=== PATIENT | female | born 1935 | race Caucasian/White ===

== ENCOUNTER → 2019-03-26 10:27 | Outpatient (CLI) | payer OTHER, SELFPAY ==
--- NOTE | ~2019-03-26 | XR_ITS ---
XR lumbar spine 2-3V DATE: 03/26/2019 10:44 INDICATION: Back pain TECHNIQUE: AP, lateral, coned lateral lumbosacral views COMPARISON: 10/26/2004 lumbar spine 11/05/2004 MRI lumbar spine FINDINGS: There is rotatory levoscoliosis of the lumbar spine with bridging osteophytes throughout th e spine. Diffuse idiopathic skeletal hyperostosis of the lower thoracic spine. There is approximately 8 mm left lateral translation of L4 with respect to L5. There is severe degene rative disc disease throughout the lumbar spine. There is diffuse osteopenia. The sacroiliac joints appear normal. Surgical clips overlie the right upper quadrant, likely due to cholecystectomy. There is a prominent amount of fecal material in the rectum and colon. IMPRESSION: Rotatory levoscoliosis and degenerative disc disease and bridging osteophytes throughout the lumbar spine Diffuse idiopathic skeletal hyperostosis of the lower thoracic spine Diffuse osteopenia Reviewed, dictated and finalized at location B. CIATE PROFESSOR OF BIOLOGY IMPRESSION: Rotatory levoscoliosis and degenerative disc disease and bridging o steophytes throughout the lumbar spine Diffuse idiopathic skeletal hyperostosis of the lower thoracic spine Diffuse osteopenia
== END ==
PROVIDERS: PCP Emergency Medicine; Visit Provider Emergency Medicine
DX: M85.88 Other specified disorders of bone density and structure, other site (principal); M51.36 Other intervertebral disc degeneration, lumbar region
CPT/HCPCS: 72100

== ENCOUNTER 2020-04-13 13:28 | Outpatient (CLI) | payer OTHER, MEDICARE, SELFPAY | END 2020-04-13 13:29 | disposition home or self-care (01) | LOC: ANHCOVIDVC 13:28 | PROVIDERS: PCP Emergency Medicine | DX: Z23 Encounter for immunization (principal) | CPT/HCPCS: 0001A; 91300 ==

== ENCOUNTER 2020-05-04 13:24 | Outpatient (CLI) | payer OTHER, MEDICARE, SELFPAY | END 2020-05-04 13:25 | disposition home or self-care (01) | LOC: ANHCOVIDVC 13:24 | PROVIDERS: PCP Emergency Medicine | DX: Z23 Encounter for immunization (principal) | CPT/HCPCS: 0002A; 91300 ==

== ENCOUNTER → 2021-03-15 10:44 | Outpatient (CLI) | payer OTHER, SELFPAY ==
--- NOTE | ~2021-03-15 | DEXA_ITS ---
Bone Density Report Name: EDI JOHN Age: 85 Sex: Female Ethnicity: White Date of : 1935 Indication: osteopenia; height loss; hysterectomy; Referring Provider: FLORIDALMA SHER Study: Bone densitometry was performed. Exam Date: March 15, 2021 Accession number: [id number] Bone Density: Region BMD T-score Z-score Classification AP Spine (L1-L4) 1.161 1.0 3.9 Normal Femoral Neck (Left) 0.672 -1.6 0.9 Osteopenia Total Hip (Left) 0.822 -1.0 1.4 Normal Femoral Neck (Right) 0.709 -1.3 1.3 Osteopenia Total Hip (Right) 0.824 -1.0 1.4 Normal Total Hip Mean 0.823 -1.0 1.4 Normal World Health Organization criteria for BMD impression classify patients as: Normal (T-score at or above -1.0), Osteopenia (T-score between -1.0 and -2.5), or Osteoporosis (T-score at or below -2.5). 10-year Fracture Risk(1): Major Osteoporotic Fracture 12% Hip Fracture 3.4% Reported Risk Factors: [place] (), Neck BMD=0.672, BMI=29.5 (1) FRAX(R) Version 3.08. Fracture probability calculated for an untreated patient. Fracture probability may be lower if the patient has received treatment. Previous Exams: Region Exam Age BMD T-score BMD Change BMD Change Date g/cm2 vs Baseline vs Previous AP Spine(L1-L4) 03/15/2021 85 1.161 1.0 0.099 -0.040 11/01/2016 81 1.201 1.4 0.139 0.013 07/27/2009 74 1.188 1.3 0.126 0.104 12/02/2005 70 1.084 0.3 0.021 0.021 08/18/2003 68 1.062 0.1 Total Hip(Left) 03/15/2021 85 0.822 -1.0 -0.039 0.010 11/01/2016 81 0.812 -1.1 -0.049 -0.020 07/27/2009 74 0.832 -0.9 -0.029 -0.075 12/02/2005 70 0.907 -0.3 0.046 0.046 08/18/2003 68 0.861 -0.7 Total Hip(Right) 03/15/2021 85 0.824 -1.0 0.014 0.028 11/01/2016 81 0.796 -1.2 -0.015 -0.011 07/27/2009 74 0.806 -1.1 -0.004 -0.050 12/02/2005 70 0.856 -0.7 0.046 0.046 08/18/2003 68 0.810 -1.1 *Denotes significance at 95% confidence level, LSC for AP Spine = 0.022 g/cm2, LSC for Total Hip = 0.027 g/cm2 Clinical Information Provided by Patient: Has used the following medications: Vitamin D, Calcium, MTV Has the following medical conditions: Hysterectomy Patient maximum height was 64.5 Menopause Age: 49 Onset of menses at age 12 Number of c
--- NOTE | ~2021-03-15 | MM_ITS ---
EXAMINATION: MM screening [facility] BI w mike HISTORY: Screening TECHNIQUE: Craniocaudal and mediolateral oblique 3-D tomosynthesis images were obtained and synthetic 2-D images were generated. CAD analysis was submitted and interpreted. COMPARISON: 06/04/2018 BREAST PARENCHYMAL COMPOSITION: Breast composed of scattered areas of fibroglandular density. FINDINGS: The right breast is stable without evidence for malignancy. There is subtle asymmetric arch itectural distortion in the upper outer quadrant of the left breast. There are benign bilateral breas t calcifications. IMPRESSION: 1. Architectural distortion upper outer quadrant of the left breast. 2. Additional mammographic views and possible breast ultrasound are recommended. BI-RADS Category 0: Incomplete: Needs additional imaging evaluation. Reviewed, dictated and finalized at location A. E FITTER IMPRESSION: 1. Architectural distortion upper outer quadrant of the left breast. 2. Additional mammographic views and possible breast ultrasound are recommended . BI-RADS Category 0: Incomplete: Needs additional imaging evaluation.
== END ==
PROVIDERS: PCP Emergency Medicine; Visit Provider Emergency Medicine
DX: Z12.31 Encounter for screening mammogram for malignant neoplasm of breast (principal); Z78.0 Asymptomatic menopausal state; R92.8 Other abnormal and inconclusive findings on diagnostic imaging of breast; M85.852 Other specified disorders of bone density and structure, left thigh; M85.851 Other specified disorders of bone density and structure, right thigh
CPT/HCPCS: 77063; 77067; 77080

== ENCOUNTER → 2021-04-06 08:08 | Outpatient (CLI) | payer OTHER, SELFPAY ==
--- NOTE | ~2021-04-06 | MM_ITS ---
EXAMINATION: MM diagnostic may LT w mike HISTORY: Left breast architectural distortion TECHNIQUE: Additional 3-D tomosynthesis images of the left breast were performed and synthetic 2-D im ages were generated. CAD analysis was submitted and interpreted. COMPARISON: 03/15/2021, 06/04/2018, 07/27/2009 FINDINGS: Architectural distortion is present in the middle third of the outer breast. This correspon ds to an area of prior excisional biopsy. No suspicious calcification or mass are identified. IMPRESSION: 1. No mammographic evidence of malignancy. 2. Recommend annual screening mammography while the patient remains in good health. BI-RADS Category 2: Benign finding(s). Reviewed, dictated and finalized at location A. IN MACHINE OPERATOR IMPRESSION: 1. No mammographic evidence of malignancy. 2. Recommend annual screening mammography while the patient remains in good hea lt. BI-RADS Category 2: Benign finding(s).
== END ==
PROVIDERS: PCP Emergency Medicine; Visit Provider Emergency Medicine
DX: N64.89 Other specified disorders of breast (principal); R92.1 Mammographic calcification found on diagnostic imaging of breast
CPT/HCPCS: 77061; 77065; G0279

== ENCOUNTER → 2021-06-04 10:51 | Outpatient (CLI) | payer OTHER, SELFPAY ==
--- NOTE | ~2021-06-04 | XR_ITS ---
EXAMINATION: XR chest 2V DATE: 06/04/2021 11:26 INDICATION: Cough TECHNIQUE: PA and lateral views of the chest are obtained. COMPARISON: 10/30/2018 FINDINGS: The lungs are free of acute opacities. There is chronic atelectasis of the left lung base. There is no pleural effusion or pneumothorax. The cardiomediastinal silhouette is normal. There is mo derate thoracic spondylosis. IMPRESSION: 1. No acute cardiopulmonary abnormality. Reviewed, dictated and finalized at location B.
== END ==
PROVIDERS: PCP Emergency Medicine; Visit Provider Emergency Medicine
DX: R05.9 Cough, unspecified (principal)
CPT/HCPCS: 71046

== ENCOUNTER 2021-08-08 16:43 | Emergency (ER) | payer OTHER, SELFPAY ==
--- NOTE | ~2021-08-08 | CT_ITS ---
EXAMINATION: CT cervical spine wo con DATE: 08/08/2021 18:00 INDICATION: fall TECHNIQUE: Computed tomography (CT) of the cervical spine was performed without intravenous contrast. Automated exposure control and iterative reconstruction technique were employed. The dose-length pro duct was 219.43 mGy-cm. COMPARISON: 10/30/2018. FINDINGS: Vertebral Body Alignment: Intact. Craniocervical and atlantoaxial alignment: Moderate degenerative change. Alignment intact. Osseous structures/fracture: No evidence of a lytic or blastic process in the visualized spine. No e vidence of acute fracture. Cervical soft tissues: The paraspinal soft tissues planes are maintained. Degenerative changes: Multilevel degenerative disc disease and facet arthropathy. Multilevel severe n eural foraminal narrowing. No severe central canal narrowing. IMPRESSION: No acute fracture or traumatic malalignment in the cervical spine. Reviewed, dictated and finalized at location K.
--- NOTE | ~2021-08-08 | XR_ITS ---
EXAM: XR sacrum coccyx min 2V, XR pelvis 1-2V DATE: 08/08/2021 18:13 HISTORY: fall, pain on tail bone . COMPARISON: None available. FINDINGS: Severely decreased mineralization. Severe degenerative change in the lower lumbar spine, p ubic symphysis, and bilateral hips. Pelvic phleboliths and scattered soft tissue calcifications. Acut e anterior angulation in the lower sacrum. No other acute osseous abnormality detected. IMPRESSION: Acute anterior angulation of the distal sacrum/sacrococcygeal junction. This may represen t a normal finding for this patient, acute fracture, or subacute/chronic injury. Correlate with acute pain or tenderness. Reviewed, dictated and finalized at location K. IMPRESSION: Acute anterior angulation of the distal sacrum/sacrococcygeal junct ion. This may represent a normal finding for this patient, acute fracture, or s ubacute/chronic injury. Correlate with acute pain or tenderness.
--- NOTE | ~2021-08-08 | CT_ITS ---
EXAMINATION: CT brain wo con DATE: 08/08/2021 18:00 INDICATION: head injury . TECHNIQUE: Computed tomography (CT) of the head was performed without intravenous contrast. The mA wa s adjusted according to patient size. Iterative reconstruction technique was employed. The dose-lengt h product was 605.33 mGy-cm. COMPARISON: 10/30/2018. FINDINGS: No acute intracranial hemorrhage or extra-axial fluid collection. No hydrocephalus, mass, or herniation. No acute ischemic infarct. Unremarkable dural venous sinus attenuation. No acute osseous abnormality. Small scalp contusion/laceration at the vertex. The aerated spaces are clear. Moderate chronic white matter change and atrophy. Atherosclerotic intracranial calcifications. Bilate ral lens replacements. IMPRESSION: No acute intracranial process. Reviewed, dictated and finalized at location K.
[2021-08-08 16:42] VITALS: BP 160/65; PULSE 87; RESP 18; TEMP 36.3; O2SAT 96
--- NOTE | 2021-08-08 17:45 | PC.NURSE ---
Pt in CT at this time
--- NOTE | 2021-08-08 18:12 | ED.FALL ---
HPI - Fall General Chief Complaint: Fall Stated Complaint: GLF - LAC TO BACK OF HEAD Time Seen by Provider: 08/08/21 17:22 History of Present Illness HPI Narrative: up on a step grabbing for walker and fell back landed on butt and hit head lac to back of head no loc pain on butt no loc/neuro changes/vision changes no other c/o no cp/sob/abd pain/n/v/d. no neck or back pain needs tdap updated Related Data Home Medications Medication Instructions Recorded Confirmed ascorbic acid (vitamin C) 1,000 mg 1 gm PO DAILY 03/25/19 12/23/20 tablet aspirin 81 mg chewable tablet 81 mg PO DAILY 03/25/19 12/23/20 calcium carbonate 600 mg-vitamin cap PO BID 03/25/19 12/23/20 D3 10 mcg (400 unit) capsule cholecalciferol (vitamin D3) 50 2,000 unit PO DAILY 03/25/19 12/23/20 mcg (2,000 unit) capsule coenzyme Q10 100 mg capsule See Rx Instructions .Route .COMPLEX 03/25/19 12/23/20 (CoQ-10) multivitamin 1 tablet PO .COMPLEX 03/25/19 12/23/20 Allergies Allergy/AdvReac Type Severity Reaction Status Date / Time prazosin Allergy Unknown unknown Verified 08/08/21 18:20 Review of Systems Constitutional: Comments: CONSTITUTIONAL: Denies fever, chills, or sweats. EYES: Denies visual changes, redness, or discharge. ENT: Denies rhinorrhea, congestion, sore throat, or otalgia. CARDIOVASCULAR: Denies chest pain, palpitations, or edema. RESPIRATORY: Denies cough or dyspnea. GASTROINTESTINAL: Denies abdominal pain, nausea, vomiting, or diarrhea. GENITOURINARY: Denies dysuria or hematuria. SKIN: Denies rash or itching. MUSCULOSKELETAL: Denies back pain, joint pain, or myalgia. has head lac and butt pain from the fall NEUROLOGIC: Denies headache, numbness, or weakness. PSYCHIATRIC: Denies anxiety or depression. [facility] Past Medical History Medical History (Updated 08/08/21 @ 18:43 by Esha Peralta MD) Vitamin D deficiency disease Family History Family History Father Acute myocardial infarction, Onset Age: 72 Mother Patient's mother is , Onset Age: 74 Social History Social History Smoking status: Never smoker Alcohol intake: never Exam Const: Other: APPEARANCE: Well appearing, no pain in distress, well-nourished. Head normocephalic 1 inch superficial lac posterior superior scalp lac EYES: PERRLA/EOMI, conjunctivae very clear. NOSE: Normal no drainage EARS:TMS clear Karlos Valiente, with good light reflex. THROAT: Pharynx clear, no exudate. NECK: Supple. No adenopathy, no masses. RESPIRATORY: Airway patent, repsirations nonlabored. Clear to auscultation bilaterally, no rales, rhonchi, wheezing. CARDIOVASCULAR: Regular rate and rhythm without murmurs rubs or gallops. ABDOMINAL: Soft, nontender, nondistended, no hepatosplenomegally MUSCULOSKELETAl: Moves all extremities. Strenght/ROM intact, No edema, No calf tenderness. pain b/l butt cheeks/sacral/coccyx no midline back or neck pain NEURO: Alert. Cranial nerves II through XII intact. Good gait. Good coordination SKIN:: Warm, dry. Normal Color PSYCHIATRIC: Normal affect/mood, normal interaction with parents. Course Course Emergency Course: wound cleaned by nurse and me and let applied at 1810 rechecked sacral area nt where xray finding and discussed with pt ? fx vs normal finding but nt on exam and pt already has donut seat at home good with this for pain and tylenol given likely normal finding givne exam and chronic osteopenia Vital Signs Vital signs: Vital Signs Temperature 36.3 C L 08/08/21 16:42 Pulse Rate 87 08/08/21 16:42 Respiratory Rate 18 08/08/21 16:42 Blood Pressure 160/65 H 08/08/21 16:42 Pulse Oximetry 96 08/08/21 16:42 Oxygen Delivery Room Air 08/08/21 16:42 Temperature 36.3 C L 08/08/21 16:42 Pulse Rate 87 08/08/21 16:42 Respiratory Rate 18 08/08/21 16:42 Blood Pressure 160/65 H
[2021-08-08] MEDS: ACETAMINOPHEN 325 MG TABLET 650 MG PO (18:16)
[2021-08-08] MEDS: TETANUS,DIPHTHERIA,AC PERTUSSIS ADULT (0.5 ML) BOOSTRIX IM (18:16)
[2021-08-08] MEDS: LIDOCAINE, EPINEPHRINE, TETRACAINE VISCOUS SOLN 3 ML TOPICAL (18:16)
[2021-08-08 18:59] VITALS: BP 163/74; PULSE 79; RESP 18; O2SAT 98
== END 2021-08-08 19:00 | disposition home or self-care (01) ==
PROVIDERS: Emergency Provider Emergency Medicine; PCP Emergency Medicine
DX: S01.01XA Laceration without foreign body of scalp, initial encounter (principal); S30.0XXA Contusion of lower back and pelvis, initial encounter; Z23 Encounter for immunization; E55.9 Vitamin D deficiency, unspecified; W18.39XA Other fall on same level, initial encounter
CPT/HCPCS: 12001; 70450; 72125; 72170; 72220; 90471; 90715; 99284; A9270

== ENCOUNTER 2021-08-18 10:35 | Emergency (ER) | payer OTHER, SELFPAY ==
[2021-08-18 10:55] VITALS: BP 177/82; PULSE 75; RESP 18; TEMP 36.7; O2SAT 98
--- NOTE | 2021-08-18 10:58 | ED.SKABFB ---
HPI - Skin/Abscess/Foreign Bdy General Chief complaint: Skin/Abscess/Foreign Body Stated complaint: suture removal Time Seen by Provider: 08/18/21 10:56 Source: patient and RN notes reviewed Mode of arrival: ambulatory Limitations: no limitations History of Present Illness HPI narrative: 86-year-old female presents for suture removal. Reports 10 days ago she had sutures placed on her out when she fell and hit her head. She denies any complications, redness, drainage, pain. She was evaluated for head injury in the emergency room 10 days ago. She denies any subsequent confusion, vomiting, headaches. complaint: other (Suture removal) Related Data Home Medications Medication Instructions Recorded Confirmed ascorbic acid (vitamin C) 1,000 mg 1 gm PO DAILY 03/25/19 08/18/21 tablet aspirin 81 mg chewable tablet 81 mg PO DAILY 03/25/19 08/18/21 calcium carbonate 600 mg-vitamin 1 cap PO BID 03/25/19 08/18/21 D3 10 mcg (400 unit) capsule cholecalciferol (vitamin D3) 50 2,000 unit PO DAILY 03/25/19 08/18/21 mcg (2,000 unit) capsule coenzyme Q10 100 mg capsule See Rx Instructions .Route .COMPLEX 03/25/19 08/18/21 (CoQ-10) multivitamin 1 tablet PO .COMPLEX 03/25/19 08/18/21 Allergies Allergy/AdvReac Type Severity Reaction Status Date / Time prazosin Allergy Unknown unknown Verified 08/18/21 10:41 Review of Systems Review of Systems: CONSTITUTIONAL: Denies malaise, chills, sweats, or fever. SKIN: Reports healing laceration on her scalp with intact sutures MUSCULOSKELETAL: Denies muscle skeletal pain NEUROLOGIC: Denies numbness, weakness All systems reviewed & are unremarkable except as noted in HPI and below PMFSH Past Medical History Medical History (Updated 08/18/21 @ 11:07 by Laya Salazar NP) Vitamin D deficiency disease Family History Family History Father Acute myocardial infarction, Onset Age: 72 Mother Patient's mother is , Onset Age: 74 Social History Social History Smoking status: Never smoker Alcohol intake: never Comments At time of signature, agree with nursing past medical, surgical, social and family history. There is no relevant family history pertinent to the presenting complaint Exam Narrative: GENERAL: Well-appearing, well-nourished, and in no acute distress. HEAD: Normocephalic, atraumatic. EYES: PERRLA, conjunctivae clear ENT: Mucous membranes moist. NECK: Supple. No lymphadenopathy CHEST: Clear to auscultation. No respiratory distress. HEART: Regular rate and rhythm. SKIN: Warm, dry. 3 intact sutures noted to the scalp with well approximated wound without induration, erythema, edema or drainage. NEURO: Alert and oriented x3. PSYCH: Normal mood and affect Course Course Emergency Course: Patient is aware of diagnosis, understands and agrees to treatment plan. Anticipatory guidance given. Patient agrees to follow-up as directed and is aware of reasons to seek care at the emergency department. Portions of this record may have been created with voice recognition software Level of Care: Express Care Visit Vital Signs Vital signs: Vital Signs Temperature 98.0 F 08/18/21 10:55 Pulse Rate 75 08/18/21 10:55 Respiratory Rate 18 08/18/21 10:55 Blood Pressure 177/82 H 08/18/21 10:55 Pulse Oximetry 98 08/18/21 10:55 Oxygen Delivery Room Air 08/18/21 10:55 Temperature 98.0 F 08/18/21 10:55 Pulse Rate 75 08/18/21 10:55 Respiratory Rate 18 08/18/21 10:55 Blood Pressure 177/82 H 08/18/21 10:55 Pulse Oximetry 98 08/18/21 10:55 Oxygen Delivery Room Air 08/18/21 10:55 Reviewed. Patient has history of hypertension MDM - Skin/Abscess/Foreign Bdy MDM Narrative Medical decision making narrative: Verbal consent was obtained. Wound well approximated, no erythema, induration, or discharge no
== END 2021-08-18 11:08 | disposition home or self-care (01) ==
PROVIDERS: Emergency Provider Nurse Practitioner; PCP Emergency Medicine
DX: S01.01XD Laceration without foreign body of scalp, subsequent encounter (principal); W19.XXXD Unspecified fall, subsequent encounter; E55.9 Vitamin D deficiency, unspecified; Z79.82 Long term (current) use of aspirin
CPT/HCPCS: 99211; G0463